=== PATIENT | female | born 1950 | race Caucasian/White ===

== ENCOUNTER 2022-02-28 05:41 | Day surgery (SDC) | payer MEDICARE, MEDICAID ==
[~2022-02-28] VITALS: Ht 149.9 cm; Wt 89.5 kg
[~2022-02-28 05:41] MED LIST: SODIUM CHLORIDE 0.9% 1,000 ML IV ONE
[2022-02-28] MEDS ORDERED: LIDOCAINE 2% 11 ML JELLY TP ONE (05:42)
[2022-02-28] MEDS ORDERED: BENZOCAINE 20% 50 MCG/SPRAY 57 GM TP ONE (05:42)
[2022-02-28] MEDS ORDERED: LIDOCAINE 4% 50 ML SOLUTION TP ONE (05:42)
[2022-02-28] MEDS ORDERED: ALBUTEROL SULFATE 2.5 MG/0.5 ML NEB SOLUTION NEB ONE ×3 (05:42→10:15)
[2022-02-28 06:31] LABS: COVID AG,FIA SOURCE NASOPHARYNGEAL
[2022-02-28] MEDS ORDERED: SODIUM CHLORIDE 0.9% 1,000 ML ONE (07:10)
[2022-02-28] MEDS ORDERED: FentaNYL CITRATE PF 100 MCG/2 ML VIAL ONE (07:56)
[2022-02-28] MEDS ORDERED: MIDAZOLAM HCL 5 MG/ML VIAL ONE (07:57)
[2022-02-28] MEDS ORDERED: MethylPREDNISolone SOD SUCC 125 MG/2 ML VIAL IVP ONE (08:45)
[2022-02-28] MEDS ORDERED: MethylPREDNISolone SOD SUCC 125 MG/2 ML VIAL ONE (09:37)
[2022-02-28] MEDS ORDERED: OXYGEN THERAPY IH SCH (20:00)
== END 2022-02-28 11:30 | disposition home or self-care (01) ==
LOC: SURGERY 05:41
PROVIDERS: ATTEND Internal Medicine Critical Care Medicine
DX: J38.4 Edema of larynx (principal); B37.0 Candidal stomatitis; I10 Essential (primary) hypertension; Z98.51 Tubal ligation status; Z98.890 Other specified postprocedural states; Z20.822 Contact with and (suspected) exposure to COVID-19; Z79.899 Other long term (current) drug therapy
CPT/HCPCS: 31623; 31624; 71045; 87015; 87070; 87101; 87206; 87220; 87426; 88112; 88305; 88312; C9803; J2250; J2930; J3010; J7030; Q9967; J7613; Z7610